=== PATIENT | male | born 1955 | race Caucasian/White ===

== ENCOUNTER 2017-12-06 06:01 | Day surgery (SDC) | payer BC ==
[~2017-12-06] VITALS: Ht 182.9 cm; Wt 98.4 kg
[~2017-12-06 06:01] MED LIST: CETI5 PO; CLOBET30L; FLONASE ALLERG9.9 ML
== END 2017-12-06 23:03 | disposition home or self-care (01) ==
LOC: ORSCMMR 06:01 → ORD 07:30 → ORSCMMR 07:30
PROVIDERS: Surgery
PROC: 0WUF0JZ Supplement Abdominal Wall with Synthetic Substitute, Open Approach (ICD-10-PCS; principal; 2017-12-06 07:30)
DX: K42.0 Umbilical hernia with obstruction, without gangrene (principal)
CPT/HCPCS: C1781; J0690; J1100; J1885; J2250; J2405; J3010; J7120

== ENCOUNTER 2024-08-04 12:59 | Day surgery (SDC) | payer BC ==
[~2024-08-04] VITALS: Ht 182.9 cm; Wt 84.5 kg
[~2024-08-04 12:59] MED LIST changes: +Lactated Ringer's 1,000 ML IV ONE; +propofoL 50 ML IV ONE
[2024-08-04] MEDS ORDERED: METF500 (13:37)
[2024-08-04] MEDS ORDERED: Triamcinolone A15 G3 (13:37)
[2024-08-04] MEDS ORDERED: JARDIANCE25 MG (13:38)
[2024-08-04] MEDS ORDERED: Lactated Ringer's 1,000 ML IV ONE (14:15)
[2024-08-04 15:32] VITALS: BP 108/83
== END 2024-08-04 15:25 | disposition home or self-care (01) ==
LOC: ORSCSDS 12:59
PROVIDERS: Surgery
PROC: 0DJD8ZZ Inspection of Lower Intestinal Tract, Via Natural or Artificial Opening Endoscopic (ICD-10-PCS; principal; 2024-08-04 14:30)
DX: Z12.11 Encounter for screening for malignant neoplasm of colon (principal); Z86.0101 Personal history of adenomatous and serrated colon polyps; E11.319 Type 2 diabetes mellitus with unspecified diabetic retinopathy without macular edema; E78.5 Hyperlipidemia, unspecified; Z79.899 Other long term (current) drug therapy; Z79.01 Long term (current) use of anticoagulants; Z79.84 Long term (current) use of oral hypoglycemic drugs
CPT/HCPCS: 82947; J2704; J7120